=== PATIENT | female | born 1980 | race Caucasian/White ===

== ENCOUNTER → 2017-02-25 | Day surgery (SDC) | payer BC ==
[2017-02-22 09:56] LABS: BASO % 0.6 % (0.0-1.0); EOS # 0.1 10*3/uL (0.0-0.4); EOS % 0.9 % (1.0-4.0); HEMATOCRIT 42.9 % (37.0-47.0); HEMOGLOBIN 14.4 g/dl (12.0-16.0); LYMPH # 2.1 10*3/uL (1.3-4.4); LYMPH % 38.7 % (27.0-41.0); MEAN CELL VOLUME 91.7 fl (81.0-99.0); MEAN CORPUSCULAR HGB 30.8 pg (27.0-31.0); MEAN CORPUSCULAR HGB CONC 33.6 g/dl (33.0-37.0); MEAN PLATELET VOLUME 10.7 fl (9.6-12.3); MONO # 0.3 10*3/uL (0.1-1.0); NEUT # 2.9 10*3/uL (2.3-7.9); NEUT % 53.6 % (47.0-73.0); PLATELET COUNT AUTOMATED 166 10*3/uL (130-400); RED BLOOD COUNT 4.68 10*6/uL (4.10-5.10); RED CELL DISTRI WIDTH 12.5 % (0-14.5); WHITE BLOOD COUNT 5.4 10*3/uL (4.8-10.8)
[~2017-02-25] VITALS: Ht 170.1 cm; Wt 66.7 kg
--- NOTE | ~2017-02-25 | O ---
[place], [place] OPERATIVE NOTE NAME: [id number] UNIT #: [id number] ROOM: DOCTOR: RENATA MCKEON MD BIRTHDATE: [birth year] DOS: 02/25/2017 PREOPERATIVE DIAGNOSES: Worsening hypermenorrhea in a patient status post tubal ligation with failure of other conservative approaches. POSTOPERATIVE DIAGNOSES: Worsening hypermenorrhea in a patient status post tubal ligation with failure of other conservative approaches. OPERATION: Hysteroscopy, D and C, and endometrial ablation i.e., NovaSure. SURGEON: Dr. Mckeon and Dr. Contreras. ANESTHESIA: MAC plus paracervical block, 1% Nesacaine local anesthetic, 5 mL each at 4 and 7 o'clock respectively. ESTIMATED BLOOD LOSS: Minimal. REPLACEMENTS: IV fluids and Toradol. COMPLICATIONS: There were no complications. The patient's condition to recovery stable. OPERATIVE SUMMARY: The patient was taken to the operating room in supine position. MAC anesthesia, lithotomy position, prepped and draped in routine manner. The patient had her bladder drained of about 25-30 mL of clear urine. Paracervical block 5 mL each 1% Nesacaine was placed at 4 and 7 o'clock respectively. The internal os was noted to be somewhat difficult to negotiate, but we finally were able to negotiate this using a sound and some dilators. Then once we did, we noted that the intrauterine cavity depth was between 8.5 and 9 cm. We progressively dilated the cervix and then we performed a thorough hysteroscopic examination of the fundus, the cornual region, the body of the uterus, lower uterine segment and all were grossly within normal limits. A thorough curettage was undertaken followed by placement of the NovaSure device and after achieving the appropriate depth and width and noting that the intrauterine cavity was intact, we performed the NovaSure ablation without complication. The device was removed and repeat hysteroscopy revealed an excellent global ablation and no other atypicalities. We also then removed all instrumentation and once had we placed a suture on each of the tenaculum sites with 2-0 chromic suture with good hemostasis achieved. The patient cleaned off, taken out of lithotomy position, awakened and transferred to recovery in satisfactory condition with stable vital signs, good hemostasis, stable sponge and instrument count. [place], [place] OPERATIVE NOTE NAME: MACY JOHNSON UNIT #: [id number] ROOM: DOCTOR: RENATA MCKEON MD BIRTHDATE: [birth year] RENATA MCKEON MD CM:OPRECORD:OPERATIVE NOTE [id number] RENATA MCKEON MD 02/25/17 1057 interface
--- NOTE | ~2017-02-25 | WRIGHTHP ---
[place], [place] PATIENT HISTORY AND PHYSICAL EXAM [id number] UNIT #: [id number] ROOM: DOCTOR: RENATA MCKEON MD BIRTHDATE: [birth year] DOS: 02/25/2017 HISTORY OF PRESENT ILLNESS: This is a very pleasant 36-year-old white female, 2, para 2, status post tubal ligation, who actually is being followed in the [facility] in [place], [place], but due to the inability to get the patient scheduled at [facility], we have discussed with the patient scheduling of a NovaSure hysteroscopy and D and C here at [facility]. The patient was very comfortable with this decision. Her history is as follows: She is a 2, para 2, as I said, status post tubal ligation, who was seen in January 2017 with prolonged menses been getting worse over the past 3 years now, lasting 7-9 days, especially heavy on cycle day 2-4. We had previously discussed NovaSure, and at the time of her visit in January 2017, she did desire NovaSure. We discussed the other therapy options as well as the risks and benefits, indications, potential complications, and alternatives of hysteroscopy, D and C, and NovaSure. Understanding was stated and she did sign a consent. Incidentally, I had delivered both her sons in 2004 and 2006. PAST MEDICAL HISTORY: Reveals 2 sections as I mentioned above, a tubal ligation with a normal pelvis in 2011, breast augmentation. Her last Pap was in 2014 and was negative. ALLERGIES: No known allergies. MEDICATIONS: The patient is taking no medications at this time. REVIEW OF SYSTEMS: Stable. FAMILY HISTORY: Reveals her mother with ductal carcinoma in situ of the breast and also maternal grandmother with breast cancer. PHYSICAL EXAMINATION: GENERAL: Reveals a pleasant white female in no significant distress. She is 5 feet 6 inches, 154 pounds, BMI is 25.3. VITAL SIGNS: Blood pressure is 110/68. She is in no significant distress. HEENT AND NECK: Grossly intact. LUNGS: Grossly intact. CARDIAC: Grossly intact. BREAST EXAM: Grossly intact. ABDOMEN: Grossly intact. EXTREMITIES: Grossly intact. NEUROLOGIC EXAM: Grossly intact. GENITOURINARY: The external genitalia, vagina, and cervix were normal. The uterus is anteverted and anteflexed, normal size, configuration, nontender, and mobile. Adnexa were negative. RECTAL: Deferred. ASSESSMENT: The assessment is that of a patient with worsening hypermenorrhea, who has also had a tubal ligation, who desires more definitive therapy in terms of NovaSure endometrial ablation along with hysteroscopy and dilatation and [place], [place] PATIENT HISTORY AND PHYSICAL EXAM NAME: MACY JOHNSON UNIT #: [id number] ROOM: DOCTOR: RENATA MCKEON MD BIRTHDATE: [birth year] curettage. This will be scheduled at [facility] on 02/25/2017. RENATA MCKEON MD CM:HISPHYS:PATIENT HISTORY AND PHYSICAL EXAMINATION [id number] RENATA MCKEON MD 02/22/17 1000 interface
[2017-02-25 08:00] VITALS: BP 121/77
[2017-02-25 10:00] VITALS: BP 102/61
[2017-02-25 10:15] VITALS: BP 118/79
[2017-02-25 10:30] VITALS: BP 119/80
[2017-02-25 10:43] VITALS: BP 125/75
== END | disposition home or self-care (01) ==
LOC: SDC 02-21 13:15
PROVIDERS: Obstetrics & Gynecology
DX: N92.0 Excessive and frequent menstruation with regular cycle (principal); Z98.51 Tubal ligation status; F17.210 Nicotine dependence, cigarettes, uncomplicated; Z80.3 Family history of malignant neoplasm of breast; Z98.890 Other specified postprocedural states; Z82.49 Family history of ischemic heart disease and other diseases of the circulatory system